=== PATIENT | female | born 1945 | race Caucasian/White ===

== ENCOUNTER 2017-12-26 03:16 | Emergency (ER) | payer MEDICARE ==
[~2017-12-26] VITALS: Ht 157.5 cm; Wt 98.4 kg
[2017-12-26] MEDS ORDERED: HUMULIN R100 UNIT/2 (04:54)
[2017-12-26] MEDS ORDERED: ULTRAM50 MG PO (04:54)
[2017-12-26] MEDS ORDERED: AMLODIPINE BESY10 MG PO (04:56)
[2017-12-26] MEDS ORDERED: METFORMIN HCL500 MG PO (04:56)
[2017-12-26] MEDS ORDERED: BRIMONIDINE TART5 ML OP (04:56)
[2017-12-26] MEDS ORDERED: SODIUM CHLORIDE 0.9% 1000ML 1,000 ML IV SCH ×2 (05:00→10:00)
[2017-12-26] MEDS ORDERED: IOPAMIDOL 300MG/ML 100 ML INFUS..BTL IV ONE (05:15)
[2017-12-26] MEDS ORDERED: LEVOFLOXACIN 500MG/D5W 100ML 100 ML IV STA (09:50)
[2017-12-26] MEDS ORDERED: METRONIDAZOLE 500MG/NS 100ML 100 ML IV STA (09:50)
[2017-12-26 11:40] VITALS: BP 130/70
== END 2017-12-26 11:45 | disposition short-term general hospital (02) ==
LOC: FSED 03:16
DX: R33.9 Retention of urine, unspecified (principal); K57.31 Diverticulosis of large intestine without perforation or abscess with bleeding; R31.9 Hematuria, unspecified; E11.9 Type 2 diabetes mellitus without complications; I10 Essential (primary) hypertension
CPT/HCPCS: 51700; 51702; 74177; 80053; 85025; 87086; 96360; 99284; J1956; J7030; Q9967

== ENCOUNTER 2021-07-13 16:49 | Emergency (ER) | payer MEDICARE ==
[~2021-07-13] VITALS: Ht 154.9 cm; Wt 86.2 kg
[~2021-07-13 16:49] MED LIST: AMLODIPINE BESY10 MG PO; BRIMONIDINE TART5 ML OP; HUMULIN R100 UNIT/2; METFORMIN HCL500 MG PO; ULTRAM50 MG PO
[2021-07-13 17:41] LABS: BASOPHILS % 0.5 % (0.0-1.0); EOSINOPHILS % 0.2 % (0.0-6.0); HEMATOCRIT 48.9 % (34.2-44.1); HEMOGLOBIN 16.2 g/dL (12.0-16.0); LYMPHOCYTES % 12.4 % (18.0-39.1); MEAN CORPUSCULAR HEMOGLOBIN 31.4 pg (28-32); MEAN CORPUSCULAR HGB CONC 33.1 g/dL (31-35); MEAN CORPUSCULAR VOLUME 94.8 fL (81-99); MONOCYTES # (AUTO) 0.3 (0.2-0.8); MONOCYTES % 3.9 % (4.4-11.3); NEUTROPHILS # (AUTO) 6.8 (2.1-6.9); NEUTROPHILS % 82.5 % (38.7-80.0); PLATELET COUNT 173 x10e3/uL (140-360); RED BLOOD COUNT 5.16 x10e6/uL (3.6-5.1); RED CELL DISTRIBUTION WIDTH 12.5 % (11.7-14.4)
[2021-07-13 18:37] LABS: ALBUMIN 3.7 g/dL (3.5-5.0); ANION GAP 15.7 mmol/L (8-16); CALCIUM 9.2 mg/dL (8.4-10.2); CREATININE, SERUM 0.64 mg/dL (0.57-1.11); POTASSIUM 3.7 mmol/L (3.5-5.1)
[2021-07-13 20:44] VITALS: BP 158/71
== END 2021-07-13 20:30 | disposition home or self-care (01) ==
LOC: ER 17:12
DX: R53.1 Weakness (principal); E11.649 Type 2 diabetes mellitus with hypoglycemia without coma; I10 Essential (primary) hypertension; Z87.19 Personal history of other diseases of the digestive system
CPT/HCPCS: 36415; 80053; 82948; 85025; 99284

== ENCOUNTER 2021-08-12 14:55 | Emergency (ER) | payer MEDICARE ==
[~2021-08-12] VITALS: Ht 154.9 cm; Wt 86.2 kg
== END 2021-08-12 16:09 | disposition home or self-care (01) ==
LOC: ER 15:41
DX: E11.649 Type 2 diabetes mellitus with hypoglycemia without coma (principal); I10 Essential (primary) hypertension; Z98.0 Intestinal bypass and anastomosis status; Z87.19 Personal history of other diseases of the digestive system
CPT/HCPCS: 36415; 82948; 99283